=== PATIENT | female | born 2000 | race Hispanic/Latino ===

== ENCOUNTER 2022-11-05 10:16 | Observation (INO) | payer MEDICAID ==
[~2022-11-05] VITALS: Ht 162.6 cm; Wt 83.0 kg
[2022-11-05 10:21] VITALS: BP 104/58
[2022-11-05 11:30] LABS: APPEARANCE,URINE CLEAR (CLEAR); BILIRUBIN,URINE NEGATIVE (NEGATIVE); COLOR,URINE YELLOW (YELLOW); GLUCOSE, URINE (UA) NEGATIVE (NEGATIVE); KETONES,URINE 5 mg/dL (NEGATIVE); LEUKOCYTE ESTERASE ,URINE 250 Leu/uL (NEGATIVE); NITRATE,URINE NEGATIVE (NEGATIVE); OCCULT BLOOD,URINE NEGATIVE (NEGATIVE); PH,URINE 6.5 (5.0-8.0); PROTEIN,URINE 20 mg/dL (NEGATIVE); UROBILINOGEN,URINE 0.2 mg/dL (0.2-1.0)
[2022-11-05] MEDS: LACTATED RINGERS 1000ML IV SCH ×2 (11:35→13:01)
[2022-11-05 11:52] LABS: BACTERIA,URINE RARE /HPF (None Seen); MUCUS,URINE RARE LPF (None Seen); RBC,URINE 0-1 /HPF (0-1); SQUAMOUS EPITHELIAL CELL,UR MOD /HPF (0-2)
[2022-11-05] MEDS ORDERED: CEFTRIAXONE 1G VIAL IVP SCH (12:30)
== END 2022-11-05 16:00 | disposition home or self-care (01) ==
LOC: EDH 10:16 → LDH 10:17
PROVIDERS: ADMIT Obstetrics & Gynecology; ATTEND Obstetrics & Gynecology
DX: O26.893 Other specified pregnancy related conditions, third trimester (principal); Z20.822 Contact with and (suspected) exposure to COVID-19; R10.9 Unspecified abdominal pain; R50.9 Fever, unspecified; O99.513 Diseases of the respiratory system complicating pregnancy, third trimester; J02.9 Acute pharyngitis, unspecified; O99.613 Diseases of the digestive system complicating pregnancy, third trimester; K59.00 Constipation, unspecified; Z3A.30 30 weeks gestation of pregnancy
CPT/HCPCS: 96374; 96361 ×2; 87088; 87880; 87804 ×2; 81001; 87635; G0378 ×5; J7120 ×2; J0696; 96360; 96372